=== PATIENT | female | born 1955 | race Caucasian/White ===

== ENCOUNTER → 2016-11-06 | Day surgery (SDC) | payer OTHER ==
[~2016-11-06] VITALS: Ht 154.9 cm; Wt 36.3 kg
[~2016-11-06] MED LIST: ADVAIR DISKUS 51 DSK IH; ALBUTEROL0.09 MG/A2 IH; ANTIBIOTIC; AVIDOXY100 MG PO; BIAXIN500 MG PO; CIPRO500 MG PO; CIPROFLOXACIN500 MG PO; CLARITIN10 MG PO; CORTISPORIN 1%-10 M1 OT; DELTASONE10 MG PO; DIFLUCAN150 MG PO; DOXYCYCLINE100 MG PO; ESTRADIOL0.5 MG; ESTROGENS0.3 MG PO; HYDROCODONE BIT1 T11; HYDROCODONE BIT1 T11 PO; HYOSCYAMINE0.375 M4; IMITREX25 MG; IRON TABLETS325 MG; KEFLEX500 MG PO; LEVAQUIN750 MG PO; LOTRONEX1 MG; LOVASTATIN10 MG PO; MEDROL DOSEPAK4 MG PO; METICORTEN1 MG; MULTIPLE VITAMI1 CTB; NEURONTIN300 MG PO; PREDNICOT10 MG PO; PREDNISONE10 MG PO; PREDNISONE20 MG PO; PRILOSEC40 M1 PO; PROAIR HFA0.09 MG/AC IH; PROTONIX40 MG; PROTONIX40 MG PO; PROVENTIL0.09 MG/AC IH; REGLAN5 MG PO; TESSALON PERLE200 MG PO; TRAMADOL HCL50 MG PO; TRIMOX500 MG PO; ULTRAM50 MG PO; VIBRAMYCIN100 MG PO; VICODIN 500 MG-1 TAB PO; VICODIN ES 7501 TAB PO; VISTARIL25 M1; ZOFRAN ODT4 MG SL
--- NOTE | ~2016-11-06 | O ---
[place], [place] OPERATIVE NOTE NAME: FELIPE GU UNIT #: [id number] ROOM: DOCTOR: TIFFANI STEVENS MD BIRTHDATE: [birth year] DOS: GASTROSCOPIC REPORT HISTORY OF PRESENT ILLNESS: A 61-year-old who has presented with chief complaint of epigastric distress, anorexia, weight loss. Calorie supplementation is mostly alcohol, beer. ALLERGIES: MORPHINE and CODEINE. FAMILY HISTORY: Sister with colonic carcinoma. PAST MEDICAL HISTORY: Diabetes, COPD. PAST SURGICAL HISTORY: Cholecystectomy, hysterectomy, appendectomy. SOCIAL HISTORY: Smoker and alcohol consumer 6 packs at least beer per day. PROCEDURE: Today's procedure part of investigation is panendoscopy. PREMEDICATION: Versed and Diprivan. SCOPE: Olympus forward-viewing gastroscope Q10 video. REPORT: After putting the patient in the left lateral position and after application of lubricant to the scope, the scope was introduced. Thereafter, under direct visualization, I advanced through the length of the esophagus without difficulty. Esophagus cervicothoracic distally within normal limit. Gastric pouch was entered. Usezg-km-[id number] gastritis was noticed. Antrum was biopsied. Duodenal bulb, second and third part within normal limit. The patient extubated, tolerated the procedure well and biopsies obtained. IMPRESSION: Owohq-rc-icuvyfg gastritis. PLAN AND DISCUSSION: The patient has abnormal LFTs. She is consuming large volume of alcohol. She remains anorexic. Otherwise, she is telling me she is losing weight. Due to uncertainty of all above, I will organize a CT scan of the abdomen and pelvis on her as an outpatient and follow up with you routinely in office and with us in GI clinic p.r.n. I thank you very much indeed for your kind referral. [place], [place] OPERATIVE NOTE NAME: FELIPE GU UNIT #: [id number] ROOM: DOCTOR: TIFFANI STEVENS MD BIRTHDATE: [birth year] TIFFANI SETVENS MD CM:OPRECORD:OPERATIVE NOTE 1120 180 TIFFANI STEVENS MD 11/07/16 0138 interface
[2016-11-06 10:29] VITALS: BP 120/86
[2016-11-06 10:58] VITALS: BP 105/63
[2016-11-06 11:13] VITALS: BP 123/72
[2016-11-06 11:28] VITALS: BP 126/74
== END | disposition home or self-care (01) ==
LOC: SDC 11-01 10:15
DX: K29.00 Acute gastritis without bleeding (principal); E11.9 Type 2 diabetes mellitus without complications; J44.9 Chronic obstructive pulmonary disease, unspecified; Z90.49 Acquired absence of other specified parts of digestive tract; Z90.710 Acquired absence of both cervix and uterus; J45.909 Unspecified asthma, uncomplicated; K21.9 Gastro-esophageal reflux disease without esophagitis; M19.90 Unspecified osteoarthritis, unspecified site; Z87.81 Personal history of (healed) traumatic fracture; G43.909 Migraine, unspecified, not intractable, without status migrainosus; Z83.3 Family history of diabetes mellitus; Z87.891 Personal history of nicotine dependence; Z88.1 Allergy status to other antibiotic agents; Z88.5 Allergy status to narcotic agent; Z88.8 Allergy status to other drugs, medicaments and biological substances

== ENCOUNTER → 2016-11-27 | Outpatient (CLI) | payer OTHER | END | disposition home or self-care (01) | LOC: RAD 11:21 | DX: Z13.820 Encounter for screening for osteoporosis (principal); M81.0 Age-related osteoporosis without current pathological fracture; N95.9 Unspecified menopausal and perimenopausal disorder; Z90.710 Acquired absence of both cervix and uterus ==

== ENCOUNTER → 2016-12-17 | Outpatient (CLI) | payer OTHER | END | disposition home or self-care (01) | LOC: CT 12-03 09:00 | DX: R10.9 Unspecified abdominal pain (principal); R63.4 Abnormal weight loss; R11.0 Nausea ==

== ENCOUNTER → 2017-12-17 | Outpatient (CLI) | payer OTHER | END | disposition home or self-care (01) | LOC: MRI 10:53 | DX: I67.82 Cerebral ischemia (principal) ==

== ENCOUNTER → 2017-12-22 | Outpatient (CLI) | payer OTHER | END | disposition home or self-care (01) | LOC: US 12-05 14:05 | DX: M79.604 Pain in right leg (principal); M79.605 Pain in left leg; R91.1 Solitary pulmonary nodule ==

== ENCOUNTER 2018-02-25 12:35 | Emergency (ER) | payer OTHER ==
[~2018-02-25] VITALS: Ht 154.9 cm; Wt 44.9 kg
[2018-02-25 13:07] LABS: BILIRUBIN NEGATIVE (NEGATIVE); BLOOD NEGATIVE (NEGATIVE); CLARITY SL CLOUDY (CLEAR); COLOR YELLOW (YELLOW); GLUCOSE 1+ (NEGATIVE); KETONE NEGATIVE (NEGATIVE); LEUKO ESTERASE TRACE (NEGATIVE); NITRITE NEGATIVE (NEGATIVE); UROBILINOGEN 0.2 E.U./dl (0.2-1.0)
[2018-02-25 13:10] LABS: URINE AMPHETAMINES < 1000 (1000ng/ml); URINE BARBITURATES < 200 (200ng/ml); URINE BENZODIAZEPINES < 200 (200ng/ml); URINE CANNABINOIDS (THC) < 50 (50ng/ml); URINE COCAINE < 300 (300ng/ml); URINE METHADONE < 300 (300ng/ml); URINE OPIATES < 300 (300ng/ml)
[2018-02-25 13:18] LABS: BACTERIA TRACE; EPITHELIAL CELLS 15-20; MUCOUS 1+
[2018-02-25 13:21] LABS: BASO # 0.1 10*3/uL (0.0-0.1); EOS # 0.1 10*3/uL (0.0-0.4); EOS % 0.9 % (1.0-4.0); HEMATOCRIT 39.7 % (37.0-47.0); HEMOGLOBIN 13.3 g/dl (12.0-16.0); LYMPH # 1.6 10*3/uL (1.3-4.4); LYMPH % 19.1 % (27.0-41.0); MEAN CELL VOLUME 95.4 fl (81.0-99.0); MEAN CORPUSCULAR HGB CONC 33.5 g/dl (33.0-37.0); MEAN PLATELET VOLUME 9.6 fl (9.6-12.3); MONO # 0.5 10*3/uL (0.1-1.0); MONO % 5.5 % (3.0-9.0); NEUT % 73.3 % (47.0-73.0); PLATELET COUNT AUTOMATED 380 10*3/uL (130-400); RED BLOOD COUNT 4.16 10*6/uL (4.10-5.10); RED CELL DISTRI WIDTH 11.6 % (0-14.5); WHITE BLOOD COUNT 8.2 10*3/uL (4.8-10.8)
[2018-02-25 13:31] LABS: ACT PARTIAL THROMBO TIME 23.9 SECONDS (20.8-31.5)
[2018-02-25 13:37] LABS: URINE PHENCYCLIDINE < 25 (25ng/ml)
[2018-02-25 13:57] LABS: ALBUMIN 2.7 gm/dl (3.1-4.5); ALKALINE PHOSPHATASE 161 U/L (45-117); BUN 2 mg/dl (7-24); CHLORIDE 101 mmol/L (98-107); CREATININE 0.56 mg/dL (0.55-1.02); POTASSIUM 3.7 mmol/L (3.5-5.1); SGOT/AST 24 IU/L (3-35); SGPT/ALT 14 U/L (12-78); SODIUM 133 mmol/L (136-145); TOTAL PROTEIN 6.7 gm/dL (6.4-8.2)
[2018-02-25 14:10] LABS: ETHYL ALCOHOL < 3.0 mg/dl (<3)
[2018-02-25 15:27] VITALS: BP 106/66
== END 2018-02-25 16:29 | disposition home or self-care (01) ==
LOC: ED 12:35
PROVIDERS: Emergency Medicine
DX: R41.0 Disorientation, unspecified (principal); R91.8 Other nonspecific abnormal finding of lung field; F22 Delusional disorders; F32.9 Major depressive disorder, single episode, unspecified; J44.9 Chronic obstructive pulmonary disease, unspecified; K21.9 Gastro-esophageal reflux disease without esophagitis; E11.9 Type 2 diabetes mellitus without complications; E03.9 Hypothyroidism, unspecified; F17.200 Nicotine dependence, unspecified, uncomplicated; Z88.6 Allergy status to analgesic agent; Z88.5 Allergy status to narcotic agent; Z88.8 Allergy status to other drugs, medicaments and biological substances; Z90.49 Acquired absence of other specified parts of digestive tract; Z90.710 Acquired absence of both cervix and uterus

== ENCOUNTER 2018-03-05 17:05 | Inpatient (IN) | payer OTHER ==
[~2018-03-05] VITALS: Ht 157.4 cm; Wt 38.2 kg
--- NOTE | ~2018-03-05 | EKG ---
[place], [place] ELECTROCARDIOGRAM REPORT NAME: FELIPE GU UNIT #: [id number] ROOM: 409 DOCTOR: LIZZY DRAFT REPORT BIRTHDATE: [birth year] [facility] Test Date: 2018-03-05 Test Time: 18:16:21 Pat Name: FELIPE GU Department: Room: 409 Gender: F Photo Technologist: Anna Marie Duenas : 1955 Requested By: SANDIP TORRES Order Number: [id number] Reading MD: Javier Crystal MD Measurements Intervals [place] Rate: 88 P: 61 MT: 136 QRS: 5 QRSD: 78 T: 29 QT: 362 QTc: 438 Interpretive Statements Sinus rhythm Ventricular premature complex Borderline low voltage, extremity leads Compared to ECG 12/25/2017 20:48:58 Ventricular premature complex(es) now present ST (T wave) deviation no longer present Electronically Signed On 03-09-2018 8:40:42 PDT by Javier Crystal MD CM:EKGRPT:ELECTROCARDIOGRAM REPORT [id number] SANDIP BALL DRAFT REPORT SANDIP TORRES
--- NOTE | ~2018-03-05 | CON ---
[place], [place] REPORT OF CONSULTATION NAME: FELIPE GU UNIT #: [id number] ROOM: 409 DOCTOR: PHD CAMILLE SHAYNA BIRTHDATE: [birth year] DOS: 03/09/2018 HISTORY OF PRESENT ILLNESS: The patient is a 63-year-old female referred by the hospitalist due to recent change in mental status. She has been experiencing increased confusion and memory problems which have her family concerned about her ability to care for herself. She is presently on the 4th floor at [facility]. The patient is a poor historian. She states that she is and has 2 children per her medical record. Several people have power of civil rights attorney. Alcohol use was reported as up to 8 beers on the weekend. Tobacco use was reported as 1 pack per day. Drug use was denied. PAST MEDICAL HISTORY: Cavitary lesion of lung, COPD, GERD, hypothyroidism, type 2 diabetes. MEDICATIONS: Cephulac, Zofran, Nicoderm, multivitamin, thiamine, folic acid, Synthroid, K-Dur, Lovenox, Percocet, Valium. The patient has a 1:1 sitter due to agitation and combative behaviors. She was sitting comfortably in bed in no apparent distress. She moved her feet throughout the whole interview. She was awake, alert and oriented to person and place. She could not name the president. Eye contact and social skills were fair. Affect was restricted in range. Mood was anxious. She firmly denied suicidal and homicidal ideation. Speech was within normal limits with respect to rhythm, rate, volume and tone. Expressive and receptive language appeared within normal limits conversationally. Thought process was tangential. There were no apparent hallucinations or delusions. She appeared confused and experienced short and long-term memory deficits on a conversational basis. Insight and judgment appeared poor. The patient's ability to function has apparently deteriorated such that she is unable to adequately care for her physical needs at this time. In my opinion, this deterioration represents a potential for imminent serious harm to self. PLAN: Discussed the patient with Dr. Davila and the [facility] staff, the patient appears to be appropriate. The patient would appear to benefit from treatment [facility] the [facility] once medically cleared. DIAGNOSIS: 1. Unspecified anxiety disorder. 2. Unspecified delirum. Thank you very much for this consult. [place], [place] REPORT OF CONSULTATION NAME: FELIPE GU UNIT #: [id number] ROOM: 409 DOCTOR: CAMILLE, PHD SHAYNA BIRTHDATE: [birth year] Gill Lnua, PhD CM:CONSTR:REPORT OF CONSULTATION 1737 TM 03/11/18 0724 MADELEINE [email or web address].TM
[2018-03-05 17:06] VITALS: BP 139/104
[2018-03-05 18:03] LABS: BILIRUBIN NEGATIVE (NEGATIVE); BLOOD NEGATIVE (NEGATIVE); CLARITY CLEAR (CLEAR); COLOR YELLOW (YELLOW); GLUCOSE NEGATIVE (NEGATIVE); KETONE NEGATIVE (NEGATIVE); LEUKO ESTERASE TRACE (NEGATIVE); NITRITE NEGATIVE (NEGATIVE); SPECIFIC GRAVITY <= 1.005 (1.005-1.030); UROBILINOGEN 0.2 E.U./dl (0.2-1.0)
[2018-03-05 18:10] LABS: BASO # 0.1 10*3/uL (0.0-0.1); BASO % 1.1 % (0.0-1.0); EOS # 0.1 10*3/uL (0.0-0.4); EOS % 1.4 % (1.0-4.0); HEMATOCRIT 41.5 % (37.0-47.0); HEMOGLOBIN 13.6 g/dl (12.0-16.0); LYMPH % 22.3 % (27.0-41.0); MEAN CELL VOLUME 94.5 fl (81.0-99.0); MEAN CORPUSCULAR HGB CONC 32.8 g/dl (33.0-37.0); MEAN PLATELET VOLUME 9.4 fl (9.6-12.3); MONO # 0.5 10*3/uL (0.1-1.0); MONO % 5.9 % (3.0-9.0); NEUT # 6.2 10*3/uL (2.3-7.9); PLATELET COUNT AUTOMATED 404 10*3/uL (130-400); RED BLOOD COUNT 4.39 10*6/uL (4.10-5.10); RED CELL DISTRI WIDTH 11.6 % (0-14.5)
[2018-03-05 18:13] LABS: BACTERIA TRACE
[2018-03-05 18:27] LABS: ALBUMIN 2.9 gm/dl (3.1-4.5); ALKALINE PHOSPHATASE 137 U/L (45-117); BUN 4 mg/dl (7-24); CHLORIDE 104 mmol/L (98-107); CREATININE 0.43 mg/dL (0.55-1.02); POTASSIUM 3.9 mmol/L (3.5-5.1); SGOT/AST 24 IU/L (3-35); SGPT/ALT 17 U/L (12-78); SODIUM 137 mmol/L (136-145); TOTAL PROTEIN 7.4 gm/dL (6.4-8.2)
[2018-03-05] MEDS ORDERED: GENERLAC10 GM/15 M PO (18:37)
[2018-03-05] MEDS ORDERED: K-TAB20 MEQ PO (18:44)
[2018-03-05] MEDS ORDERED: Synthroid,Levo25 MCG PO (18:45)
[2018-03-05] MEDS ORDERED: NATURE'S BLEND F1 MG PO (18:47)
[2018-03-05] MEDS ORDERED: VALIUM5 MG PO (18:47)
[2018-03-05] MEDS ORDERED: VITAMIN B-1100 M1 PO (18:48)
[2018-03-05] MEDS ORDERED: DAILY VALUE1 EACH PO (18:49)
[2018-03-05] MEDS ORDERED: PERCOCET 5-3251 EACH PO (18:50)
[2018-03-05 19:18] VITALS: BP 104/72
[2018-03-05 19:45] VITALS: BP 110/61
[2018-03-05 20:00] VITALS: BP 110/61
[2018-03-06] VITALS: BP 107/74
[2018-03-06 08:08] VITALS: BP 137/67
[2018-03-06 08:10] VITALS: BP 110/66
[2018-03-06 11:41] VITALS: BP 118/75
[2018-03-06 15:41] VITALS: BP 121/72
[2018-03-06 20:00] VITALS: BP 145/82
[2018-03-07] VITALS: BP 129/79
[2018-03-07 06:49] LABS: BASO # 0.1 10*3/uL (0.0-0.1); BASO % 1.2 % (0.0-1.0); EOS # 0.2 10*3/uL (0.0-0.4); EOS % 2.4 % (1.0-4.0); HEMOGLOBIN 13.2 g/dl (12.0-16.0); LYMPH # 1.8 10*3/uL (1.3-4.4); LYMPH % 22.3 % (27.0-41.0); MEAN CELL VOLUME 95.3 fl (81.0-99.0); MEAN CORPUSCULAR HGB 30.7 pg (27.0-31.0); MEAN CORPUSCULAR HGB CONC 32.2 g/dl (33.0-37.0); MEAN PLATELET VOLUME 9.9 fl (9.6-12.3); MONO # 0.6 10*3/uL (0.1-1.0); NEUT # 5.4 10*3/uL (2.3-7.9); NEUT % 66.9 % (47.0-73.0); PLATELET COUNT AUTOMATED 441 10*3/uL (130-400); RED CELL DISTRI WIDTH 11.6 % (0-14.5)
[2018-03-07 08:00] VITALS: BP 126/81
[2018-03-07 08:14] LABS: BUN 1 mg/dl (7-24); CHLORIDE 106 mmol/L (98-107); CREATININE 0.38 mg/dL (0.55-1.02); POTASSIUM 3.4 mmol/L (3.5-5.1); SODIUM 140 mmol/L (136-145)
[2018-03-07 12:00] VITALS: BP 127/89
[2018-03-07] MEDS ORDERED: NEURONTIN300 MG PO (12:38)
[2018-03-08 04:00] VITALS: BP 118/71
[2018-03-08 08:00] VITALS: BP 100/67
[2018-03-08 12:00] VITALS: BP 104/60; BP 99/62
[2018-03-08 16:00] VITALS: BP 128/80
[2018-03-08 20:00] VITALS: BP 122/70
[2018-03-09 01:00] VITALS: BP 100/60
[2018-03-09 07:13] LABS: BUN 5 mg/dl (7-24); CHLORIDE 109 mmol/L (98-107); CREATININE 0.37 mg/dL (0.55-1.02); POTASSIUM 4.1 mmol/L (3.5-5.1); SODIUM 142 mmol/L (136-145)
[2018-03-09 07:31] VITALS: BP 105/66
[2018-03-09 12:00] VITALS: BP 102/63
[2018-03-09 16:00] VITALS: BP 144/85
[2018-03-09 20:00] VITALS: BP 131/84
[2018-03-10 06:24] LABS: BASO # 0.1 10*3/uL (0.0-0.1); BASO % 1.6 % (0.0-1.0); EOS # 0.3 10*3/uL (0.0-0.4); EOS % 4.5 % (1.0-4.0); HEMATOCRIT 39.6 % (37.0-47.0); HEMOGLOBIN 12.9 g/dl (12.0-16.0); LYMPH # 1.7 10*3/uL (1.3-4.4); LYMPH % 31.1 % (27.0-41.0); MEAN CORPUSCULAR HGB 30.9 pg (27.0-31.0); MEAN CORPUSCULAR HGB CONC 32.6 g/dl (33.0-37.0); MEAN PLATELET VOLUME 9.7 fl (9.6-12.3); MONO # 0.5 10*3/uL (0.1-1.0); MONO % 8.7 % (3.0-9.0); NEUT % 53.7 % (47.0-73.0); PLATELET COUNT AUTOMATED 417 10*3/uL (130-400); RED BLOOD COUNT 4.17 10*6/uL (4.10-5.10); RED CELL DISTRI WIDTH 11.6 % (0-14.5); WHITE BLOOD COUNT 5.5 10*3/uL (4.8-10.8)
[2018-03-10 07:00] VITALS: BP 113/71
[2018-03-10 11:14] VITALS: BP 115/58
[2018-03-10 16:00] VITALS: BP 115/58
[2018-03-10] MEDS ORDERED: VALIUM5 MG PO (18:31)
== END 2018-03-10 18:05 | disposition home health service (06) | DRG 689 ==
LOC: ED 17:05 → EDHOLD 18:45 → 4E 18:45
PROVIDERS: Family Medicine; Internal Medicine; Student in an Organized Health Care Education/Training Program
DX: N39.0 Urinary tract infection, site not specified (principal); G93.41 Metabolic encephalopathy; E43 Unspecified severe protein-calorie malnutrition; F03.91 Unspecified dementia, unspecified severity, with behavioral disturbance; R41.0 Disorientation, unspecified; J98.4 Other disorders of lung; D72.810 Lymphocytopenia; J44.9 Chronic obstructive pulmonary disease, unspecified; E03.9 Hypothyroidism, unspecified; E11.9 Type 2 diabetes mellitus without complications; K21.9 Gastro-esophageal reflux disease without esophagitis; R91.8 Other nonspecific abnormal finding of lung field; D47.3 Essential (hemorrhagic) thrombocythemia; F41.9 Anxiety disorder, unspecified; Z72.0 Tobacco use; Z71.6 Tobacco abuse counseling; Z85.118 Personal history of other malignant neoplasm of bronchus and lung; Z88.6 Allergy status to analgesic agent; Z88.8 Allergy status to other drugs, medicaments and biological substances; Z79.899 Other long term (current) drug therapy; Z90.49 Acquired absence of other specified parts of digestive tract; Z90.89 Acquired absence of other organs; Z98.84 Bariatric surgery status; Z82.49 Family history of ischemic heart disease and other diseases of the circulatory system; Z83.3 Family history of diabetes mellitus; Z82.0 Family history of epilepsy and other diseases of the nervous system; Z80.0 Family history of malignant neoplasm of digestive organs; Z68.20 Body mass index [BMI] 20.0-20.9, adult

== ENCOUNTER 2018-03-10 17:43 | Inpatient (IN) | payer OTHER ==
[~2018-03-10] VITALS: Ht 154.9 cm; Wt 49.9 kg
--- NOTE | ~2018-03-10 | PR ---
[place], [place] PROGRESS NOTE NAME: FELIPE GU UNIT #: [id number] ROOM: 314 DOCTOR: SHANNA SAMUELS MD BIRTHDATE: [birth year] DOS: 03/13/2018 CHIEF COMPLAINT: "I stay here a week and then I go home for 3 or 4 days and then I stay here for a week again." SUMMARY OF THE VISIT: The patient was interviewed as she was walking down the reaves. We walked with her down the reaves and she engaged in pleasant, superficial conversation. She still is very confused, perplexed and bewildered. When asked what she had for breakfast, she gave a lengthy list of breakfast items, first Uzbek toast, eggs, omelet, toast, etc. She does confabulate quite a bit to fill in the gaps. She is pleasant, however, and offers no agitation or aggression. MENTAL STATUS: She is alert and oriented to person, possibly place and that she may know that she is in the hospital, but not oriented to time. Mood is fairly euthymic. Affect appropriate. No rakesh, hypomania or gross psychosis is noted. Short term memory is very problematic. PLAN: I will increase Exelon patch to its maximum dose of 13.3 mg daily, simultaneously increasing the Namenda from 5 mg a day to 5 mg twice daily. The plan over the next several days will be to maximize out the dose of the Namenda. We will continue to engage in individual and martinez milieu activity, returning to the least restrictive environment when psychiatrically stable. SHANNA SAMUELS MD CM:PNTRANS [id number] SHANNA SAMUELS MD 03/13/18 1652 interface
--- NOTE | ~2018-03-10 | PR ---
[place], [place] PROGRESS NOTE NAME: FELIPE GU UNIT #: [id number] ROOM: 314 DOCTOR: SHANNA SAMUELS MD BIRTHDATE: [birth year] DOS: 03/18/2018 INTERVAL NOTE CHIEF COMPLAINT: "Oh, I feel better today, thank you." SUMMARY OF THE VISIT: The patient was interviewed as she was standing at the side of the dining area. She engaged readily in conversation. She did not offer a plethora of somatic complaints. Instead, she reports that she is feeling better. She states, however, she has been here in the hospital for 8-9 months. She continues to be very confused and disjointed and requires a great deal of support and redirection. Nurses report that she had a very poor visit last evening when family came to visit making it to the point where family left early because they could not tolerate her emotionality. Of note, the patient was not inappropriately crying this morning and seemed to be able to engage more readily in meaningful conversation. MENTAL STATUS: She is alert and oriented to person, possibly place, not to time. Mood does seem to be more euthymic this morning. There is no rakesh, hypomania or psychosis. Short-term memory continues to be problematic. PLAN: I will go ahead and increase her Nuedexta to its therapeutic level of 20-10 b.i.d. Continue to engage in individual and martinez milieu activity. We will explore with [facility] and family the possibility of a 30-day placement to determine if improvement is made if she can return home or will require long-term care placement. SHANNA SAMUELS MD CM:PNTRANS [id number] SHANNA SAMUELS MD 03/18/18 1510 interface
--- NOTE | ~2018-03-10 | PR ---
[place], [place] PROGRESS NOTE NAME: FELIPE GU UNIT #: [id number] ROOM: 314 DOCTOR: SHANNA SAMUELS MD BIRTHDATE: [birth year] DOS: 03/16/2018 INTERVAL NOTE CHIEF COMPLAINT: "Oh, I don't feel good, I have a headache." SUMMARY OF THE VISIT: The patient was interviewed as she sat in the dining area. She was somewhat somatic, still very confused and fretful. She does not seem to recognize me. She engaged in brief superficial conversation. Nurses report more of the saying that she is very perplexed and confused throughout the day and requires a great deal of support and redirection. MENTAL STATUS: She is alert and oriented to person, possibly place, but not to time. Mood does seem to be still fretful and anxious. She gives short, simple responses. There is no hypomania, rakesh or gross psychosis noted. Short term memory continues to be problematic and she does have processing slowness. PLAN: I will renew her Ativan p.r.n. in case she requires intervention. Meanwhile, I will maintain her current psychotropic regimen, continue to support and monitor. Her PASRR has been returned and they have deemed her appropriate for a long-term care placement. Engine Hostler will be reaching out to family to discuss this further. We will discharge then when psychiatrically stable. SHANNA SAMUELS MD CM:PNTRANS 01 30 SHANNA SAMUELS MD 03/16/181931 interface
--- NOTE | ~2018-03-10 | WRIGHTHP ---
[place], [place] PATIENT HISTORY AND PHYSICAL EXAM NAME: FELIPE GU UNIT #: [id number] ROOM: 314 DOCTOR: SHANNA SAMUELS MD BIRTHDATE: [birth year] DOS: 03/11/2018 INITIAL PSYCHIATRIC EVALUATION CHIEF COMPLAINT: "Oh, I guess I just needed to get some help." HISTORY OF PRESENT ILLNESS: This is a 63-year-old white female who is initially admitted to the medical floor, but was found to be increasingly confused and agitated. In fact, a code lyssa was called on 03/07/2018 because of increased agitation and aggression. She then required a one-on-one sitter to prevent further episodes of attempting to elope the facility. The patient was found to be increasingly confused during her stay and noted about a 2-3 week history of short term memory loss. In fact, the patient when she was first evaluated on the U was alert and oriented to self only. She believed that she was in a [employer] type program to get food stamps. The patient has a reported history of alcohol abuse in the past. She is admitted now to further assess mental status to engage in individual and martinez milieu activity and to return to the least restrictive environment when psychiatrically stable. PAST MEDICAL HISTORY: Remarkable for chronic pain syndrome, COPD, folic acid deficiency, GERD, hypothyroidism, a lung mass, severe protein-calorie malnutrition, thiamine deficiency, nicotine dependence and diabetes. ALLERGIES: She lists multiple drug allergies to NAPROSYN, COMPAZINE, CODEINE, MORPHINE and TRAMADOL. FAMILY HISTORY: Remarkable for Alzheimer's disease on the father's side and mother having colon cancer. SOCIAL HISTORY: She does have a history reported of alcohol abuse and consumes alcohol occasionally now. She does smoke cigarettes. She does not use illicit drugs. STRENGTHS: Ambulatory, good verbal skills. WEAKNESSES: Past history of reported alcohol consumption, confusion and poor coping skills. MENTAL STATUS: She is alert and oriented to person. At this morning, seem like she was oriented to place, certainly not to time. The patient reports that she resides with her boyfriend, but leaves frequently to take care of her elderly parents who are 62 and 65 years old respectively. She had a great deal of word finding difficulty during the initial interview and could not totally tell me what she had for breakfast and tended to confabulate to fill in the gaps. There is no symptom suggestive of rakesh or hypomania. There are no gross psychotic symptoms nor was there any agitation during my initial interview. Short term memory does continue to have gaps. DIAGNOSES: Intermittent explosive disorder, rule out Alzheimer's dementia, rule out major depression. [place], [place] PATIENT HISTORY AND PHYSICAL EXAM NAME: FELIPE GU UNIT #: [id number] ROOM: 314 DOCTOR: SHANNA SAMUELS MD BIRTHDATE: [birth year] PLAN: I will start her on Exelon patch 4.6 mg a day. I have already started her on Depakote 250 mg 3 times daily in an effort to decrease some of the mood lability. Routine screening examinations revealed her to have a low vitamin D level of 21.2. I will start vitamin D 5000 international units daily. We will engage in individual and martinez milieu therapy, returning to the least restrictive environment when psychiatrically stable. SHANNA SAMUELS MD CM:HISPHYS:PATIENT HISTORY AND PHYSICAL EXAMINATION [id number] [id number] SHANNA SAMUELS MD 03/11/18 1148 interface
--- NOTE | ~2018-03-10 | PR ---
[place], [place] PROGRESS NOTE NAME: FELIPE GU UNIT #: [id number] ROOM: 314 DOCTOR: SHANNA SAMUELS MD BIRTHDATE: [birth year] DOS: 03/19/2018 INTERVAL NOTE CHIEF COMPLAINT: "Everybody has been so nice to me here." SUMMARY OF THE VISIT: The patient was interviewed as she sat in the dining area. She engaged in brief superficial conversation. She continues to be horribly confused and disoriented. She began talking about [place] Armijo, but then repeatedly told me that she lives in [place]. She could not tell me accurately how long she has been here. She was pleasant, however, on the verge of tears during multiple occasions during the interview, but she did not cry this time. There was no agitation or aggression. There is no symptom suggestive of medication side effects. MENTAL STATUS: She remains alert and oriented to person, possibly place, but not to time. Mood does seem to be trending towards euthymia. Affect is more appropriate. There is no rakesh, hypomania or gross psychosis. Short-term memory continues to be problematic. PLAN: I will maintain her current dose of Exelon patch and Namenda. Continue to engage her in individual and martinez milieu activity. We are awaiting placement options for her, so that she can have 24-hour supervision to prevent harm to self. SHANNA SAMUELS MD CM:PNTRANS SHANNA SAMUELS MD 03/19/18 0952 interface
--- NOTE | ~2018-03-10 | PR ---
[place], [place] PROGRESS NOTE NAME: FELIPE GU UNIT #: [id number] ROOM: 314 DOCTOR: SHANNA SAMUELS MD BIRTHDATE: [birth year] DOS: 03/17/2018 CHIEF COMPLAINT: "I am just so sad." SUMMARY OF THE VISIT: The patient was interviewed as she was sitting in the group therapy room. She was eating a bag of potato chips and crying as she ate. She did voice that she was depressed, but could not state why she was depressed. Interestingly nurses report many periods of inappropriate crying that seem incongruent to the reality of the situation going on. The patient continues to be grossly confused and talks about being in an apartment building and then later stated she realizes she is in the hospital. MENTAL STATUS: She is alert and oriented to person, not necessarily to place, certainly not time. Mood does seem to be somewhat despondent, but there is also periods of crying that are inappropriate to the situation. There is no hypomania or rakesh. There is no gross psychosis. Short term memory remains poor and she does have significant processing slowness. PLAN: I will discontinue her Depakote as I do not see her having significant mood lability to warrant the use of Depakote. Instead, we will initiate Nuedexta 20-10 one a day to treat pseudobulbar affect and monitor over the next 24-48 hours for any benefit. We will continue to engage in individual and martinez milieu activity, returning then to the least restrictive environment when psychiatrically stable. SHANNA SAMUELS MD CM:PNTRANS 1108 [id number] SHANNA SMAUELS MD 03/17/18 1630 interface
--- NOTE | ~2018-03-10 | PR ---
[place], [place] PROGRESS NOTE NAME: FELIPE GU UNIT #: [id number] ROOM: 314 DOCTOR: SHANNA SAMUELS MD BIRTHDATE: [birth year] DOS: 03/12/2018 INTERVAL NOTE CHIEF COMPLAINT: "I am waiting for my sister. She is just down the reaves." SUMMARY OF THE VISIT: The patient was interviewed as she was standing by the nurses' station. She reported feeling sick in the stomach and stated that she had thrown up 3 times already this morning. At first, she did not appear to recognize me and then regroup quickly and stated she did. When questioned as far as how long she has been here in the hospital, she reports she just got here this morning. She also reported to me that her sister was down the reaves in one other rooms and was planning to be meeting her by the nurses' station shortly. She is grossly confused and disoriented. She was pleasant, however, and was not agitated in any fashion. MENTAL STATUS: She is alert and oriented to self only. Her responses are very short fragmented, disjointed, at times inappropriate. There is no symptom suggestive of rakesh or hypomania. There are no gross auditory or visual hallucinations. Short term memory is exceptionally poor. PLAN: I will go ahead and continue to increase her Exelon patch, bringing it from 4.6 to 9.5 mg a day and began augmenting it with Namenda 5 mg daily. I had ordered her in a dose of Zyprexa 2.5 mg in the morning because she complained of persistent nausea. Rather than treating her with the Depakote, I will discontinue the Depakote in lieu of Zyprexa 2.5 mg in the morning and 5 mg at night to stabilize her mood, to decrease some of her delusions regarding where she is at and who is visiting, etc. The Zyprexa also served to stimulate her appetite. We will support and monitor and engage in individual and martinez milieu activity, returning to the least restrictive environment when psychiatrically stable. SHANNA SAMUELS MD CM:PNTRANS [id number] SHANNA SAMUELS MD 03/12/18 1217 interface
--- NOTE | ~2018-03-10 | DS ---
[place], [place] DISCHARGE SUMMARY NAME: FELIPE GU UNIT #: [id number] ROOM: 314 DOCTOR: SHANNA SAMUELS MD BIRTHDATE: [birth year] DOS: 03/23/2018 ADDENDUM The previous discharge summary was dictated for discharge pending on 03/20/2018. CHIEF COMPLAINT: At the time of discharge, "Oh do I have to go to school." SUMMARY OF THE VISIT: The patient was interviewed as she was pleasantly sitting in the dining area, having already eaten her breakfast. She continues to be grossly confused and disorganized, but redirectable. She was on the verge of tears but no tears, actually materialized, and she did redirect both with some reassurance and self-redirection. MENTAL STATUS AT THE TIME OF DISCHARGE: The patient is alert and oriented to self only. Mood does seem to be trending towards euthymia. Affect appropriate. There is no rakesh, hypomania, or gross psychosis. Memory for the most part for short term is extremely poor. DIAGNOSIS: As per the previous discharge summary dictated on 03/20/2018. DISPOSITION: To [facility] as per 03/20/2018. Prescriptions have been printed and will be sent with her. SHANNA SAMUELS MD CM:DISCHARG [id number] SHANNA SAMUELS MD 03/23/18 2103 interface
--- NOTE | ~2018-03-10 | EKG ---
[place], [place] ELECTROCARDIOGRAM REPORT NAME: FELIPE GU UNIT #: [id number] ROOM: 314 DOCTOR: LIZZY DRAFT REPORT BIRTHDATE: [birth year] [facility] Test Date: 2018-03-24 Test Time: 09:45:40 Pat Name: FELIPE GU Department: Room: [facility] 2 Gender: F Family Engagement Specialist: : 1955 Requested By: SANDIP TORRES Order Number: [id number] Reading MD: Measurements Intervals [place] Rate: 96 P: 74 AK: 127 QRS: 25 QRSD: 60 T: 45 QT: 327 QTc: 414 Interpretive Statements Sinus rhythm Right atrial enlargement Borderline low voltage, extremity leads Compared to ECG 03/05/2018 18:16:21 Atrial abnormality now present Ventricular premature complex(es) no longer present CM:EKGRPT:ELECTROCARDIOGRAM REPORT 0945 0649 SANDIP BALL DRAFT REPORT SANDIP TORRES
--- NOTE | ~2018-03-10 | DS ---
[place], [place] DISCHARGE SUMMARY NAME: FELIPE GU UNIT #: [id number] ROOM: 314 DOCTOR: SHANNA SAMUELS MD BIRTHDATE: [birth year] DOS: 03/23/2018 CHIEF COMPLAINT: "Oh, I guess I just needed to get some help." HISTORY OF PRESENT ILLNESS: This is a 63-year-old white female who was initially admitted to the medical floor, but was found to be increasingly confused and agitated. In fact a code lyssa was called on March 07 because of increased agitation and aggression. She then required one-on-one sitter to prevent further episodes of attempting to elope the facility. The patient was found to be increasingly confused during her stay and noted about a 2-3 week history of short term memory loss. The patient was admitted to further assess mental status, to engage in individual and martinez milieu activity, to return then to the least restrictive environment. SUMMARY OF HOSPITAL COURSE: The patient was admitted to the hospital where she was found to be only alert and oriented to person. The patient was started on Exelon patch 4.6 mg a day and also Namenda. Exelon and Namenda were rapidly titrated upwards to Exelon patch 13.3 mg daily and Namenda 10 mg twice daily. Nurses noted a lot of inappropriate crying that seemed to be incongruent to the activities that were occurring at that time. It was felt that she did meet criteria for pseudobulbar affect and Nuedexta 20-10 once a day was started. This had an immediate impact on decreasing the crying episodes. It was later brought up to its maximum dose of 1 tablet q. 12 hours. The patient was initially started on Depakote, but it was felt that the mood lability was actually pseudobulbar affect, so it was discontinued. Zyprexa was utilized to decrease some of her psychotic symptoms and delusions and also to stimulate appetite and aid sleep. She tolerated the medicines well and it was determined that she would benefit from a long-term care stay given her significant cognitive impairment and tendency to be exit seeking. She was ultimately discharged to [facility] for further treatment. MENTAL STATUS AT DISCHARGE: The patient was alert and oriented only to self. Mood did seem to be more euthymic. Affect appropriate. There was no rakesh, hypomania or gross psychosis. Short term memory continued to be problematic. DIAGNOSES: Intermittent explosive disorder, pseudobulbar affect, Alzheimer's dementia. DISPOSITION: The patient is to go to [facility]. I will be the treating psychiatrist of record. There are no acute medical issues at the present time. The patient's scripts were printed and sent with her. ADDENDUM The previous discharge summary was dictated for discharge pending on 03/20/2018. CHIEF COMPLAINT: At the time of discharge, "Oh do I have to go to school." SUMMARY OF THE VISIT: The patient was interviewed as she was pleasantly sitting in the dining area, having already eaten her breakfast. She continues to be [place], [place] DISCHARGE SUMMARY NAME: FELIPE GU UNIT #: [id number] ROOM: [facility] DOCTOR: SHANNA SAMUELS MD BIRTHDATE: [birth year] grossly confused and disorganized, but redirectable. She was on the verge of tears but no tears, actually materialized, and she did redirect both with some reassurance and self-redirection. MENTAL STATUS AT THE TIME OF DISCHARGE: The patient is alert and oriented to self only. Mood does seem to be trending towards euthymia. Affect appropriate. There is no rakesh, hypomania, or gross psychosis. Memory for the most part for short term is extremely poor. DIAGNOSIS: As per the previous discharge summary dictated on 03/20/2018. DISPOSITION: To [facility] as per 03/20/2018. Prescriptions have been printed and will be sent with her. SHANNA SAMUELS MD CM:DISCHARG [id number] SHANNA SAMUELS MD 03/23/18 2103 interface
--- NOTE | ~2018-03-10 | CON ---
[place], [place] REPORT OF CONSULTATION NAME: FELIPE GU UNIT #: [id number] ROOM: 314 DOCTOR: PHD ARIS LUNAHERINE BIRTHDATE: [birth year] DOS: 03/12/2018 HISTORY OF PRESENT ILLNESS: The patient is a 63-year-old female referred by Dr. Davila for competency evaluation. She has been experiencing increased confusion, memory problems. She is presently on the [facility] at [facility]. The patient is a poor historian. She states that she is and has 2 children. She has three ponce of document review attorney. PAST MEDICAL HISTORY: Cavitary lesion of lung, COPD, GERD, hypothyroidism, type 2 diabetes. The patient was awake, alert and oriented to person and place. She could not give the current President, current events, or spell world forwards. She performed one correct serial 7 subtraction. Mood was anxious without suicidal or homicidal ideation. Affect was restricted in range. Speech was within normal limits with respect to rhythm, rate, volume, and tone. Language skills appeared within normal limits on a conversational basis. The patient was very confused. She states that she can "get out on the weekends" from the hospital and is here because "a wheel loader operator told her to come during the week." In my opinion, the patient is clearly not competent at this time. She would benefit from utilizing her ponce of document review attorney for healthcare decisions. DIAGNOSES: Delirium, not otherwise specified. Unspecified neurocognitive disorder. Unspecified anxiety disorder. RECOMMENDATIONS: Deferred to her ponce of document review attorney for healthcare decisions. Thank you very much for this consult. Gill Luna, PhD CM:CONSTR:REPORT OF CONSULTATION 1536 03/12/18 2001 interface
[~2018-03-10 17:43] MED LIST changes: +DAILY VALUE1 EACH PO; +GENERLAC10 GM/15 M PO; +K-TAB20 MEQ PO; +NATURE'S BLEND F1 MG PO; +PERCOCET 5-3251 EACH PO; +Synthroid,Levo25 MCG PO; +VALIUM5 MG PO; +VITAMIN B-1100 M1 PO
[2018-03-10 18:16] VITALS: BP 129/773
[2018-03-10] MEDS ORDERED: VALIUM5 MG PO (18:31)
[2018-03-10 18:32] VITALS: BP 129/77
[2018-03-10 20:00] VITALS: BP 134/72
[2018-03-11 06:30] LABS: BASO # 0.1 10*3/uL (0.0-0.1); BASO % 1.2 % (0.0-1.0); EOS # 0.1 10*3/uL (0.0-0.4); EOS % 1.3 % (1.0-4.0); HEMATOCRIT 36.3 % (37.0-47.0); HEMOGLOBIN 12.1 g/dl (12.0-16.0); LYMPH # 1.8 10*3/uL (1.3-4.4); LYMPH % 26.9 % (27.0-41.0); MEAN CELL VOLUME 93.1 fl (81.0-99.0); MEAN CORPUSCULAR HGB CONC 33.3 g/dl (33.0-37.0); MEAN PLATELET VOLUME 9.6 fl (9.6-12.3); MONO # 0.4 10*3/uL (0.1-1.0); MONO % 5.5 % (3.0-9.0); NEUT # 4.4 10*3/uL (2.3-7.9); NEUT % 64.8 % (47.0-73.0); PLATELET COUNT AUTOMATED 439 10*3/uL (130-400); RED CELL DISTRI WIDTH 11.8 % (0-14.5); WHITE BLOOD COUNT 6.7 10*3/uL (4.8-10.8)
[2018-03-11 07:04] LABS: ALBUMIN 2.6 gm/dl (3.1-4.5); ALKALINE PHOSPHATASE 138 U/L (45-117); BUN 3 mg/dl (7-24); CHLORIDE 105 mmol/L (98-107); CHOLESTEROL 146 mg/dL (<200); HDL CHOLESTEROL 69 mg/dl (40-60); LDL CHOLESTEROL 61 mg/dL (9-159); POTASSIUM 3.9 mmol/L (3.5-5.1); SGOT/AST 21 IU/L (3-35); SGPT/ALT 20 U/L (12-78); SODIUM 138 mmol/L (136-145); TOTAL PROTEIN 6.5 gm/dL (6.4-8.2); TRIGLYCERIDES 82 mg/dl (<150); VLDL CHOLESTEROL 16 mg/dL (6-40)
[2018-03-11 09:19] VITALS: BP 110/76
[2018-03-11 09:44] LABS: VITAMIN D, 25-HYDROXY 21.2 ng/mL (30-100)
[2018-03-11 19:55] VITALS: BP 104/66
[2018-03-12 06:29] VITALS: BP 112/62
[2018-03-12] MEDS ORDERED: BREO ELLIPTA 11 EACH PO (14:04)
[2018-03-12] MEDS ORDERED: SPIRIVA RESPIMAT4 GM INH (14:07)
[2018-03-12] MEDS ORDERED: PROAIR HFA8.5 GM INH (14:08)
[2018-03-12 20:28] VITALS: BP 123/76
[2018-03-13 07:53] VITALS: BP 136/72
[2018-03-13 21:01] VITALS: BP 141/88
[2018-03-14 07:25] VITALS: BP 119/79
[2018-03-14 20:00] VITALS: BP 117/73
[2018-03-15 07:46] VITALS: BP 109/72
[2018-03-15 20:00] VITALS: BP 133/72
[2018-03-16 08:00] VITALS: BP 135/73
[2018-03-16 20:00] VITALS: BP 127/79
[2018-03-17 08:50] VITALS: BP 131/75
[2018-03-18 07:32] VITALS: BP 120/61
[2018-03-18 19:54] VITALS: BP 125/77
[2018-03-19 08:26] VITALS: BP 113/56
[2018-03-19 19:47] VITALS: BP 127/71
[2018-03-20 07:48] VITALS: BP 121/56
[2018-03-20] MEDS ORDERED: ZYPREXA2.5 MG PO (08:50)
[2018-03-20] MEDS ORDERED: NEUDEXT PO (08:50)
[2018-03-20] MEDS ORDERED: VITAMIN D5000 UNI1 PO (08:50)
[2018-03-20] MEDS ORDERED: LACTULOSE20 GM/30 M PO (08:50)
[2018-03-20] MEDS ORDERED: MEMANTINE HCL10 MG PO (08:50)
[2018-03-20] MEDS ORDERED: EXELON13.3 MG/21 T (08:50)
[2018-03-20] MEDS ORDERED: OLANZAPINE5 MG PO (08:50)
[2018-03-20 19:47] VITALS: BP 128/62
[2018-03-21 08:21] VITALS: BP 119/65
[2018-03-21 18:50] VITALS: BP 131/78
[2018-03-22 06:55] VITALS: BP 129/76
[2018-03-22 20:00] VITALS: BP 132/72
[2018-03-23 08:45] VITALS: BP 120/78
[2018-03-23 08:48] VITALS: BP 108/72
[2018-03-23 20:00] VITALS: BP 120/63
[2018-03-24 07:56] VITALS: BP 129/75
[2018-03-24 09:59] LABS: BASO # 0.1 10*3/uL (0.0-0.1); BASO % 0.9 % (0.0-1.0); EOS # 0.2 10*3/uL (0.0-0.4); HEMATOCRIT 37.1 % (37.0-47.0); HEMOGLOBIN 12.4 g/dl (12.0-16.0); LYMPH # 1.9 10*3/uL (1.3-4.4); LYMPH % 19.9 % (27.0-41.0); MEAN CELL VOLUME 89.8 fl (81.0-99.0); MEAN CORPUSCULAR HGB CONC 33.4 g/dl (33.0-37.0); MEAN PLATELET VOLUME 9.2 fl (9.6-12.3); MONO # 0.9 10*3/uL (0.1-1.0); MONO % 9.5 % (3.0-9.0); NEUT # 6.5 10*3/uL (2.3-7.9); NEUT % 67.3 % (47.0-73.0); PLATELET COUNT AUTOMATED 537 10*3/uL (130-400); RED BLOOD COUNT 4.13 10*6/uL (4.10-5.10); RED CELL DISTRI WIDTH 11.9 % (0-14.5); WHITE BLOOD COUNT 9.7 10*3/uL (4.8-10.8)
[2018-03-24 10:14] LABS: ALBUMIN 3.1 gm/dl (3.1-4.5); ALKALINE PHOSPHATASE 131 U/L (45-117); BUN 8 mg/dl (7-24); CHLORIDE 103 mmol/L (98-107); CREATININE 0.48 mg/dL (0.55-1.02); POTASSIUM 4.4 mmol/L (3.5-5.1); SGOT/AST 19 IU/L (3-35); SGPT/ALT 20 U/L (12-78); SODIUM 135 mmol/L (136-145); TOTAL PROTEIN 7.5 gm/dL (6.4-8.2)
[2018-03-24 10:16] LABS: TROPONIN I < 0.015 ng/ml (<0.045)
== END 2018-03-24 09:56 | disposition short-term general hospital (02) | DRG 56 ==
LOC: 3N 17:43
PROVIDERS: Psychiatry & Neurology Psychiatry; Student in an Organized Health Care Education/Training Program
DX: G30.9 Alzheimer's disease, unspecified (principal); E43 Unspecified severe protein-calorie malnutrition; F03.91 Unspecified dementia, unspecified severity, with behavioral disturbance; R64 Cachexia; E51.9 Thiamine deficiency, unspecified; F63.81 Intermittent explosive disorder; F41.9 Anxiety disorder, unspecified; R05 Cough; E53.8 Deficiency of other specified B group vitamins; K59.00 Constipation, unspecified; G89.4 Chronic pain syndrome; J44.9 Chronic obstructive pulmonary disease, unspecified; K21.9 Gastro-esophageal reflux disease without esophagitis; E03.9 Hypothyroidism, unspecified; E11.9 Type 2 diabetes mellitus without complications; F17.210 Nicotine dependence, cigarettes, uncomplicated; F32.9 Major depressive disorder, single episode, unspecified; F02.80 Dementia in other diseases classified elsewhere, unspecified severity, without behavioral disturbance, psychotic disturbance, mood disturbance, and anxiety; D47.3 Essential (hemorrhagic) thrombocythemia; Z88.5 Allergy status to narcotic agent; Z88.9 Allergy status to unspecified drugs, medicaments and biological substances; Z81.8 Family history of other mental and behavioral disorders; Z80.0 Family history of malignant neoplasm of digestive organs; Z68.20 Body mass index [BMI] 20.0-20.9, adult

== ENCOUNTER 2018-03-24 10:14 | Inpatient (IN) | payer OTHER ==
--- NOTE | ~2018-03-24 | EKG ---
[place], [place] ELECTROCARDIOGRAM REPORT NAME: FELIPE GU UNIT #: [id number] ROOM: 508 DOCTOR: LIZZY DRAFT REPORT BIRTHDATE: [birth year] [facility] Test Date: 2018-03-24 Test Time: 16:55:59 Pat Name: FELIPE GU Department: Room: 508 1 Gender: F Small Engine Specialist: Esmer Velazquez : 1955 Requested By: CARLOS A VILLELA Order Number: [id number] Reading MD: Thomas Alicia MD Measurements Intervals [place] Rate: 87 P: 56 [place]: 143 QRS: -5 QRSD: 62 T: 28 QT: 356 QTc: 429 Interpretive Statements Sinus rhythm No change from earlier ECG this date. Electronically Signed On 03-24-2018 20:11:08 PDT by Thomas Alicia MD CM:EKGRPT:ELECTROCARDIOGRAM REPORT 1655 10 CARLOS A DANIELS DRAFT REPORT CARLOS A VILLELA DO
--- NOTE | ~2018-03-24 | CON ---
[place], [place] REPORT OF CONSULTATION NAME: FELIPE GU UNIT #: [id number] ROOM: 508 DOCTOR: PHD CAMILLE SHAYNA BIRTHDATE: [birth year] DOS: 03/25/2018 HISTORY OF PRESENT ILLNESS: The patient is a 63-year-old female referred by the hospitalist to determine appropriateness of BHU placement. The patient had been receiving care on the Behavioral Health Unit from 03/11/2018 through 03/24/2018 due to increased confusion and agitation while on the medical floor. She was ready for discharge from the [facility] on 03/20/2018 but had an authorization issue at [facility], where she was to be discharged and was subsequently not able to leave at that time. She then had a medical emergency necessitating a move to the medical floor on 03/24/2018. At the present time, the patient is on the 5th floor at [facility]. She is and has 2 children. She has three ponce of tax attorney. According to her record, she has a history of alcohol abuse and drinks alcohol occasionally. PAST MEDICAL HISTORY: Chronic pain syndrome, COPD, folic acid deficiency, GERD, hypothyroidism, lung mass, severe protein-calorie malnutrition, thiamine deficiency, nicotine dependence and diabetes. SOCIAL HISTORY: She smokes cigarettes and does not use illegal drugs. MEDICATIONS: Vitamin D, Zyprexa, Exelon, Theragran, thiamine, folic acid, K-Dur, Cephulac, Lovenox, Synthroid, Namenda, Nuedexta, Ventolin, Pulmicort Respules, DuoNeb, Percocet, Restoril. PHYSICAL EXAMINATION: The patient was sitting comfortably in bed in no apparent distress. She was awake, alert and oriented to person and place. She could not name the president or current events. Eye contact and social skills were appropriate. She was calm and cooperative with evaluation. Affect was appropriately wide ranging and mood was stable. She denied suicidal ideation, plan, and intent. She denied homicidal ideation. Speech was within normal limits with respect to the rhythm, rate, volume and tone. Expressive and receptive language appeared within normal limits on conversational basis. Thought process was confused. Thought content was negative for hallucinations and delusions. The patient appears to be in a relatively stable condition at this point from a psychological perspective. She appears to have benefited from her stay on the [facility] and would be appropriate for a lower level of care. She has been accepted in a locked unit at [facility] due to elopement concerns and confusion. DIAGNOSIS: Unspecified neurocognitive disorder with behavioral disturbance. PLAN: The patient does not appear to be an appropriate candidate for the [facility] Unit at this time. Thank you very much for this consult. [place], [place] REPORT OF CONSULTATION NAME: FELIPE GU lEoy UNIT #: [id number] ROOM: 508 DOCTOR: CAMILLE, PHD SHAYNA BIRTHDATE: [birth year] Gill Luna, PhD CM:CONSTR:REPORT OF CONSULTATION 1416 03/31/18 0716 interface
[2018-03-24 10:10] VITALS: BP 147/85
[~2018-03-24 10:14] MED LIST changes: +BREO ELLIPTA 11 EACH PO; +EXELON13.3 MG/21 T; +LACTULOSE20 GM/30 M PO; +MEMANTINE HCL10 MG PO; +NEUDEXT PO; +OLANZAPINE5 MG PO; +PROAIR HFA8.5 GM INH; +SPIRIVA RESPIMAT4 GM INH; +VITAMIN D5000 UNI1 PO; +ZYPREXA2.5 MG PO
[2018-03-24 12:00] VITALS: BP 122/74
[2018-03-24 16:00] VITALS: BP 122/74
[2018-03-24 20:00] VITALS: BP 126/72
[2018-03-25] VITALS: BP 110/72
[2018-03-25 06:42] LABS: BASO # 0.1 10*3/uL (0.0-0.1); BASO % 1.4 % (0.0-1.0); EOS # 0.4 10*3/uL (0.0-0.4); EOS % 5.7 % (1.0-4.0); HEMATOCRIT 35.2 % (37.0-47.0); HEMOGLOBIN 11.4 g/dl (12.0-16.0); LYMPH # 2.3 10*3/uL (1.3-4.4); LYMPH % 32.3 % (27.0-41.0); MEAN CELL VOLUME 92.6 fl (81.0-99.0); MEAN CORPUSCULAR HGB CONC 32.4 g/dl (33.0-37.0); MEAN PLATELET VOLUME 9.3 fl (9.6-12.3); MONO # 0.8 10*3/uL (0.1-1.0); MONO % 11.3 % (3.0-9.0); NEUT # 3.5 10*3/uL (2.3-7.9); NEUT % 48.9 % (47.0-73.0); PLATELET COUNT AUTOMATED 480 10*3/uL (130-400); RED CELL DISTRI WIDTH 11.8 % (0-14.5); WHITE BLOOD COUNT 7.1 10*3/uL (4.8-10.8)
[2018-03-25 07:06] LABS: ALBUMIN 2.8 gm/dl (3.1-4.5); ALKALINE PHOSPHATASE 126 U/L (45-117); BUN 6 mg/dl (7-24); CHLORIDE 102 mmol/L (98-107); CREATININE 0.41 mg/dL (0.55-1.02); PHOSPHOROUS 4.1 mg/dL (2.5-4.9); SGOT/AST 31 IU/L (3-35); SGPT/ALT 24 U/L (12-78); SODIUM 136 mmol/L (136-145); TOTAL PROTEIN 6.7 gm/dL (6.4-8.2)
[2018-03-25 09:21] VITALS: BP 100/69
[2018-03-25 12:00] VITALS: BP 120/67
== END 2018-03-25 19:49 | DRG 391 ==
LOC: 5E 10:14
PROVIDERS: Internal Medicine
DX: K21.9 Gastro-esophageal reflux disease without esophagitis (principal); E43 Unspecified severe protein-calorie malnutrition; R64 Cachexia; E51.9 Thiamine deficiency, unspecified; F01.51 Vascular dementia, unspecified severity, with behavioral disturbance; R07.9 Chest pain, unspecified; J44.9 Chronic obstructive pulmonary disease, unspecified; E03.9 Hypothyroidism, unspecified; R91.8 Other nonspecific abnormal finding of lung field; J98.4 Other disorders of lung; F03.90 Unspecified dementia, unspecified severity, without behavioral disturbance, psychotic disturbance, mood disturbance, and anxiety; F41.9 Anxiety disorder, unspecified; E53.8 Deficiency of other specified B group vitamins; G89.29 Other chronic pain; D47.3 Essential (hemorrhagic) thrombocythemia; F63.81 Intermittent explosive disorder; F17.210 Nicotine dependence, cigarettes, uncomplicated; Z90.49 Acquired absence of other specified parts of digestive tract; Z98.84 Bariatric surgery status; Z82.0 Family history of epilepsy and other diseases of the nervous system; Z85.038 Personal history of other malignant neoplasm of large intestine; Z88.5 Allergy status to narcotic agent; Z88.9 Allergy status to unspecified drugs, medicaments and biological substances; Z68.20 Body mass index [BMI] 20.0-20.9, adult

== ENCOUNTER 2018-05-16 18:51 | Emergency (ER) | payer OTHER ==
[~2018-05-16] VITALS: Wt 59.0 kg
--- NOTE | ~2018-05-16 | EKG ---
[place], [place] ELECTROCARDIOGRAM REPORT NAME: EFLIPE GU UNIT #: [id number] ROOM: DOCTOR: EPIPHANY DRAFT REPORT BIRTHDATE: [birth year] [facility] [place] Test Date: 2018-05-16 Test Time: 20:07:07 Pat Name: FELIPE GU Department: Room: Gender: F Legal Paraprofessional: Yajaira Gerber : 1955 Requested By: ROBERTO MARTEL Order Number: [id number] Reading MD: Javier Crystal MD Measurements Intervals [place] Rate: 77 P: 51 [place]: 155 QRS: 7 QRSD: 68 T: 21 QT: 366 QTc: 415 Interpretive Statements Sinus rhythm Compared to ECG 03/24/2018 16:55:59 No significant changes Electronically Signed On 05-19-2018 5:28:56 PST by Javier Crystal MD CM:EKGRPT:ELECTROCARDIOGRAM REPORT 06 7 ROBERTO MARTEL EPIPHANY DRAFT REPORT ROBERTO MARTEL
[2018-05-16 18:52] VITALS: BP 156/88
[2018-05-16 19:18] LABS: BILIRUBIN NEGATIVE (NEGATIVE); BLOOD NEGATIVE (NEGATIVE); CLARITY CLEAR (CLEAR); COLOR YELLOW (YELLOW); GLUCOSE NEGATIVE (NEGATIVE); KETONE NEGATIVE (NEGATIVE); LEUKO ESTERASE NEGATIVE (NEGATIVE); NITRITE NEGATIVE (NEGATIVE); PH 5.5 (5.0-9.0); SPECIFIC GRAVITY <= 1.005 (1.005-1.030); UROBILINOGEN 0.2 E.U./dl (0.2-1.0)
[2018-05-16 19:23] LABS: BACTERIA TRACE; RBC 0-2 rbc/hpf (0-2); WBC 0-2 wbc/hpf (0-5)
[2018-05-16 19:26] LABS: URINE AMPHETAMINES < 1000 (1000ng/ml); URINE BARBITURATES < 200 (200ng/ml); URINE BENZODIAZEPINES < 200 (200ng/ml); URINE CANNABINOIDS (THC) < 50 (50ng/ml); URINE COCAINE < 300 (300ng/ml); URINE METHADONE < 300 (300ng/ml); URINE OPIATES < 300 (300ng/ml); URINE PHENCYCLIDINE < 25 (25ng/ml)
[2018-05-16 20:05] LABS: BASO # 0.1 10*3/uL (0.0-0.1); BASO % 0.9 % (0.0-1.0); EOS # 0.2 10*3/uL (0.0-0.4); EOS % 2.4 % (1.0-4.0); HEMATOCRIT 33.7 % (37.0-47.0); HEMOGLOBIN 10.8 g/dl (12.0-16.0); LYMPH # 2.3 10*3/uL (1.3-4.4); LYMPH % 27.4 % (27.0-41.0); MEAN CELL VOLUME 84.9 fl (81.0-99.0); MEAN CORPUSCULAR HGB 27.2 pg (27.0-31.0); MEAN PLATELET VOLUME 8.6 fl (9.6-12.3); MONO # 0.6 10*3/uL (0.1-1.0); MONO % 7.1 % (3.0-9.0); NEUT # 5.2 10*3/uL (2.3-7.9); NEUT % 61.6 % (47.0-73.0); PLATELET COUNT AUTOMATED 421 10*3/uL (130-400); RED BLOOD COUNT 3.97 10*6/uL (4.10-5.10); RED CELL DISTRI WIDTH 13.2 % (0-14.5); WHITE BLOOD COUNT 8.4 10*3/uL (4.8-10.8)
[2018-05-16 20:25] LABS: ALBUMIN 3.1 gm/dl (3.1-4.5); ALKALINE PHOSPHATASE 176 U/L (45-117); BUN 6 mg/dl (7-24); CHLORIDE 103 mmol/L (98-107); CREATININE 0.51 mg/dL (0.55-1.02); POTASSIUM 3.8 mmol/L (3.5-5.1); SGOT/AST 33 IU/L (3-35); SGPT/ALT 23 U/L (12-78); SODIUM 133 mmol/L (136-145); TOTAL PROTEIN 7.4 gm/dL (6.4-8.2)
== END 2018-05-16 21:45 | disposition home or self-care (01) ==
LOC: ED 18:51
PROVIDERS: Nurse Practitioner
DX: F32.9 Major depressive disorder, single episode, unspecified (principal); F41.9 Anxiety disorder, unspecified; F03.90 Unspecified dementia, unspecified severity, without behavioral disturbance, psychotic disturbance, mood disturbance, and anxiety; C34.11 Malignant neoplasm of upper lobe, right bronchus or lung; J43.9 Emphysema, unspecified; F17.200 Nicotine dependence, unspecified, uncomplicated; Z88.8 Allergy status to other drugs, medicaments and biological substances; Z88.5 Allergy status to narcotic agent; Z88.6 Allergy status to analgesic agent; Z79.899 Other long term (current) drug therapy; Z90.710 Acquired absence of both cervix and uterus; Z90.49 Acquired absence of other specified parts of digestive tract

== ENCOUNTER → 2019-02-11 | Outpatient (CLI) | payer OTHER ==
[2019-02-11 12:07] LABS: BASO # 0.1 10*3/uL (0.0-0.1); BASO % 0.8 % (0.0-1.0); EOS # 0.2 10*3/uL (0.0-0.4); HEMATOCRIT 41.5 % (37.0-47.0); HEMOGLOBIN 13.4 g/dl (12.0-16.0); LYMPH # 2.4 10*3/uL (1.3-4.4); LYMPH % 27.8 % (27.0-41.0); MEAN CELL VOLUME 79.8 fl (81.0-99.0); MEAN CORPUSCULAR HGB 25.8 pg (27.0-31.0); MEAN CORPUSCULAR HGB CONC 32.3 g/dl (33.0-37.0); MEAN PLATELET VOLUME 8.5 fl (9.6-12.3); MONO # 0.6 10*3/uL (0.1-1.0); MONO % 6.9 % (3.0-9.0); NEUT # 5.3 10*3/uL (2.3-7.9); NEUT % 62.1 % (47.0-73.0); PLATELET COUNT AUTOMATED 451 10*3/uL (130-400); WHITE BLOOD COUNT 8.5 10*3/uL (4.8-10.8)
[2019-02-11 12:21] LABS: ALBUMIN 2.9 gm/dl (3.1-4.5); ALKALINE PHOSPHATASE 268 U/L (45-117); BUN 4 mg/dl (7-24); CHLORIDE 104 mmol/L (98-107); CHOLESTEROL 118 mg/dL (<200); CREATININE 0.51 mg/dL (0.55-1.02); HDL CHOLESTEROL 62 mg/dl (40-60); LDL CHOLESTEROL 44 mg/dL (9-159); POTASSIUM 4.2 mmol/L (3.5-5.1); SGOT/AST 17 IU/L (3-35); SGPT/ALT 8 U/L (12-78); SODIUM 134 mmol/L (136-145); TOTAL PROTEIN 7.8 gm/dL (6.4-8.2); TRIGLYCERIDES 58 mg/dl (<150); VLDL CHOLESTEROL 12 mg/dL (6-40)
== END | disposition home or self-care (01) ==
LOC: CT 01-22 13:00 → LAB 11:03
PROVIDERS: Nurse Practitioner Family
DX: S22.41XA Multiple fractures of ribs, right side, initial encounter for closed fracture (principal); R91.8 Other nonspecific abnormal finding of lung field; X58.XXXA Exposure to other specified factors, initial encounter; Y93.89 Activity, other specified; Y92.89 Other specified places as the place of occurrence of the external cause; Y99.8 Other external cause status

== ENCOUNTER → 2019-05-07 | Day surgery (SDC) | payer OTHER ==
[~2019-05-07] VITALS: Ht 157.4 cm; Wt 39.9 kg
[~2019-05-07] MED LIST changes: +IRON325 M1 PO
[2019-05-07 14:30] VITALS: BP 121/66
[2019-05-07 17:08] VITALS: BP 87/53
[2019-05-07 17:23] VITALS: BP 93/57
[2019-05-07 17:38] VITALS: BP 93/57
== END | disposition home or self-care (01) ==
LOC: SDC 05-03 12:30
DX: D12.3 Benign neoplasm of transverse colon (principal); K57.30 Diverticulosis of large intestine without perforation or abscess without bleeding; J44.9 Chronic obstructive pulmonary disease, unspecified; K21.9 Gastro-esophageal reflux disease without esophagitis; F41.9 Anxiety disorder, unspecified; F32.9 Major depressive disorder, single episode, unspecified; Z90.710 Acquired absence of both cervix and uterus; Z98.890 Other specified postprocedural states; Z87.891 Personal history of nicotine dependence; Z85.118 Personal history of other malignant neoplasm of bronchus and lung; Z88.8 Allergy status to other drugs, medicaments and biological substances; Z79.899 Other long term (current) drug therapy; Z83.3 Family history of diabetes mellitus; Z82.49 Family history of ischemic heart disease and other diseases of the circulatory system